=== PATIENT | female | born 1940 | race Caucasian/White ===

== ENCOUNTER → 2016-11-27 | Outpatient (CLI) | payer MEDICARE, BC ==
[~2016-11-27] MED LIST: ALPR.25 PO; AMIT10TA6 PO; ASPI81 PO; ASPI81CH CHEW; BENIFIBER PO; BONI150T PO; DULO20 PO; FISH1000 PO; GLUCTAB47 PO; LEVO75TA3 PO; LEVO75TA42 PO; META48.53 PO; OYST500T77 PO; PRIL10PO PO; TAB-TAB PO
--- NOTE | 2016-11-28 11:56 | EKG ---
Date Performed: 11/27/2016 Time Performed: 10:49:09 PTAGE: 76 years EKG: Sinus rhythm NORMAL ECG Compared to prior tracing no significant change PREVIOUS TRACING : 08/18/2008 11.32 DOCTOR: Franck Neil Interpretating Date/Time 11/28/2016 11:54:08
== END ==
LOC: PHPRE 09:57
PROVIDERS: ATTEND Ophthalmology
DX: Z01.810 Encounter for preprocedural cardiovascular examination (principal); H26.9 Unspecified cataract
CPT/HCPCS: 36415; 93005

== ENCOUNTER → 2016-12-18 | Day surgery (SDC) | payer MEDICARE, BC ==
--- NOTE | 2016-12-05 08:35 | MH ---
cc: MARY GALDAMEZ DATE OF ADMISSION: 12/18/2016 ADMISSION DIAGNOSIS Cataract right eye. HISTORY OF PRESENT ILLNESS This 76-year-old white female is coming through [facility] for the purpose of a lens extraction of the right eye with intraocular lens implant under local anesthesia. She has noted decreasing visual acuity interfering with her daily activities and elected to have the above procedure. Her best corrected visual acuity in room light is 20/40 -1 in the right eye and 20/30 -2 in the left. PAST MEDICAL HISTORY The patient has had a history of seeing pulsating lights and was seen in the [facility] by Dr. Blake who felt that this problem was in her vitreous and would eventually go away but did not know how long it would take. She still has it several years later. OTHER PAST MEDICAL HISTORY 1. Diabetes. 2. Polymyalgia rheumatica which he is in remission. 3. Irritable bowel syndrome. 4. Acid reflux. 5. Arthritis. PAST SURGICAL HISTORY 1. Mastectomy and reconstruction. 2. Paraesophageal hernia. 3. Inguinal hernia. 4. Elbow replacement. DAILY MEDICATIONS 1. Levothyroxine. 2. Omeprazole. 3. Xanax p.r.n. 4. Amitriptyline. 5. Metamucil. 6. Baby aspirin. ALLERGIES She has noted that amitriptyline causes hoarseness but has no other allergies. SOCIAL HISTORY The patient does not smoke or drink alcohol. FAMILY HISTORY Noncontributory. REVIEW OF SYSTEMS HEAD: Patient denies severe headaches, dizziness or recent head injury. EARS: Patient denies hearing loss, ear pain, discharge. The patient has ringing in the ears with tinnitus. NOSE: Patient denies nasal discharge, obstruction or frequent colds. MOUTH AND THROAT: Patient denies soreness of the mouth or tongue, bleeding gums, trouble swallowing, changes in voice or sore throat. NECK: Patient denies neck pain or swelling, limitation of neck movement or neck injury. CARDIOPULMONARY SYSTEM: Patient denies shortness of breath, orthopnea, chronic cough, sputum production, hemoptysis, chest pain, wheezing, palpitations or light-headedness. GI SYSTEM: Patient denies poor appetite, nausea, vomiting, abdominal pain, ulcers, hemorrhoids or change in bowel habits. Her acid reflux causes her to sleep on several pillows. SYSTEM: The patient denies urinary frequency, dysuria, change in urine color. NERVOUS SYSTEM: Patient denies convulsions, vertigo, stroke, numbness or weakness. PHYSICAL EXAMINATION VITAL SIGNS: Blood pressure is 122/78, pulse 88, respirations 16. HEAD: Normocephalic, atraumatic. NOSE: Without rhinorrhea. THROAT: Clear. NECK: Supple. CHEST: Clear. HEART: Regular rhythm. ABDOMEN: Without tenderness. EXTREMITIES: Without edema. NEUROLOGIC: Within normal limits. MENTAL STATUS: Within normal limits. EYE EXAMINATION The patient's best corrected visual acuity in room light is 20/40 -1 in the right eye and 20/30 -2 in the left. Visual peñaloza are full to confrontation testing. Extraocular muscle exam reveals full versions with orthophoria in the distance and exophoria at near. Pupils are 3 mm equal, round, reactive to light without afferent defect. Anterior segment examination reveals dermatochalasis of the eyelid skin. There are nuclear sclerotic and cortical cataract changes bilaterally. Intraocular pressure is 19 in the right eye and 20 in the left by applanation tonometry. Dilated fundus exam revealed sharp disks with cup-to-disk ratio of 0.2 bilaterally. There is some hypo pigmentation in the macula of each eye. A posterior vitreous detachment is present bilaterally. IMPRESSION 1. Bilateral cataracts. 2. Posterior vitreous detachment both eyes. PLAN Lens extraction of the right eye with intraocular lens implant under local anesthesia through [facility]. We may place a Toric intraocular lens as the patient has astigmatism and has elected to have this lens if it is possible during the procedure. Iris retractors may be used if the pupil does not dilate well. The patient has been cleared medically. She has been counseled as to the risks, benefits and alternatives and elected to proceed. I feel that cataract surgery will improve the quality of life and activities of daily living in this patient. MD JULIENNE Felipe/AMANDA /7:58 AM /8:06 AM BETITO
[~2016-12-18] VITALS: Ht 161.3 cm; Wt 68.2 kg
[~2016-12-18] MED LIST changes: -ASPI81 PO; -BENIFIBER PO; -BONI150T PO; +CHLORHEXIDINE GLUCONATE 2 % 1 PACK (2 CLOTHS) TOPICAL PRN; +CYCLOPENTOLATE HCL 1% OPHT SOLN 2 ML BTL ONE; +DICLOFENAC SOD 0.1% OPHT SOLN 2.5 ML BTL ONE; -DULO20 PO; -FISH1000 PO; +GATIFLOXACIN 0.5% OPHT SOLN 2.5 ML BTL ONE; -GLUCTAB47 PO; +HYALURONIDASE/LIDOCAINE/BUPIVACAINE 4.5 ML SYR RIGHT EYE ONE; +HYALURONIDASE/LIDOCAINE/BUPIVACAINE 6 ML SYR RIGHT EYE ONE; +INSULIN HUMAN REGULAR 1,000 UNITS/10 ML VIAL SQ PRN; +LACTATED RINGER'S 1000 ML IV PRN; -LEVO75TA42 PO; +METOPROLOL TARTRATE 25 MG TAB PO PRN; -OYST500T77 PO; +PHENYLEPHRINE HCL 2.5% OPTH SOLN 2 ML BTL ONE; +PILOCARPINE HCL 2% OPHT SOLN 15 ML BTL ONE; +POVIDONE IODINE 5% (ANTISEPSIS KIT) 4 APPLICATIONS EACH NARE PRN; +PROPARACAINE HCL 0.5% OPHT SOLN 15 ML BTL ONE; +PROPARACAINE HCL 0.5% OPHT SOLN 15 ML BTL RIGHT EYE ONE; +PROPOFOL 200 MG/20 ML AMP ONE; +SODIUM CHLORID 0.9% 500 ML IV PRN; -TAB-TAB PO; +TOBRAMYCIN/DEXAMETHASONE OPTH OINT 3.5 GM TUBE ONE; +TROPICAMIDE 1% OPHT SOLN 15 ML BTL ONE; +acetaZOLAMIDE SEQUELS 500 MG SUSTAINED RELEASE CAP ONE
[2016-12-18] MEDS: GATIFLOXACIN 0.5% OPHT SOLN 2.5 ML BTL RIGHT EYE SCH ×4 (06:45→06:54)
[2016-12-18] MEDS: DICLOFENAC SOD 0.1% OPHT SOLN 2.5 ML BTL RIGHT EYE SCH ×4 (06:45→06:54)
[2016-12-18] MEDS: PHENYLEPHRINE HCL 2.5% OPTH SOLN 2 ML BTL RIGHT EYE SCH ×4 (06:45→06:54)
[2016-12-18] MEDS: TROPICAMIDE 1% OPHT SOLN 15 ML BTL RIGHT EYE SCH ×4 (06:45→06:54)
[2016-12-18] MEDS: CYCLOPENTOLATE HCL 1% OPHT SOLN 2 ML BTL RIGHT EYE SCH ×4 (06:45→06:54)
[2016-12-18 07:00] VITALS: PULSE 67
[2016-12-18 07:21] VITALS: PULSE 65
[2016-12-18] MEDS: EPINEPHrine HCL (1:1000) 1 MG/ML VIAL ONE ×2 (07:48→07:51)
[2016-12-18] MEDS: VISCOAT OPHT IRRIG SOLN 0.75 ML SYRINGE ONE ×2 (07:48→07:51)
[2016-12-18] MEDS: ACETYLCHOLINE CHL OPHT SOLN 1:100 2 ML VIAL ONE ×2 (07:48→07:51)
[2016-12-18 09:14] VITALS: BP 146/72; PULSE 82; RESP 16; TEMP 97.6; O2SAT 99
--- NOTE | 2016-12-18 15:02 | MP ---
cc: MARY SCOTT DATE OF SURGERY: 12/18/2016 PREOPERATIVE DIAGNOSIS Cataract, right eye. POSTOPERATIVE DIAGNOSIS Cataract right eye. OPERATION Extracapsular cataract extraction with toric posterior chamber intraocular lens implant by phacoemulsification, right eye. SURGEON Mary Scott M.D. ANESTHESIA Local. COMPLICATIONS None. INDICATIONS See history and physical previously dictated. OPERATIVE PROCEDURE The patient's right eye was marked at the limbus at the 3, 6 and 9 o'clock positions. The patient had adequate retrobulbar and eyelid blocks administered in the holding area and was brought to the operating room. The right eye was prepped and draped in the usual sterile ophthalmic manner. A lid speculum was inserted in the right eye. A 4-0 silk bridle suture was placed through the conjunctiva near the superior rectus muscle and it was tacked to the drape. A fornix-based conjunctival flap was prepared spanning approximately 5 mm in width. Hemostasis was obtained with wet-field cautery. A 3.5 mm groove was made 1 mm from the limbus and dissected up to the limbus in the form of a scleral pocket incision. A stab incision was then made at the 2 o'clock position. Viscoelastic was injected into the anterior chamber. The anterior chamber was entered with a 2.75 mm keratome through the scleral pocket incision. A 360 degree continuous curvilinear capsulorrhexis was then performed. Hydrodissection was utilized to divide the nucleus into inner and outer components and to separate the cortex from the capsule. Phacoemulsification was then utilized to remove the nucleus. The outer nuclear layer was removed with irrigation and aspiration and short bursts of ultrasound as necessary. The cortex was removed with the irrigation-aspiration handpiece. The posterior capsule was polished with the capsule polisher. Viscoelastic was injected into the capsular bag. The intraocular lens was inspected and found to be in good condition. The lens utilized was an Partha, model [id number] with a power of +19 diopters. The lens was inserted into the capsular bag and rotated so that the alignment glass were at the 3 degree position. The viscoelastic in the anterior chamber was then removed with the irrigation-aspiration handpiece. Viscoelastic was also removed from beneath the intraocular lens. The anterior chamber was filled with Miochol-E through the stab incision and pressurized. The wound was checked for leaks at this pressure and normalized pressure, and there were none. The 4-0 bridle suture was removed. The conjunctival flap was brought down over the wound and secured with cautery. Pilocarpine 2% eye drops were instilled topically. The lid speculum was removed. TobraDex ophthalmic ointment was applied. The eye was double patched and shielded. The patient tolerated the procedure well and left the Operating Room in satisfactory condition. MD JULIENNE Felipe/JENNIFER /1:46 PM /2:55 PM
== END | disposition home or self-care (01) ==
LOC: PHSDC 06:10
PROVIDERS: ATTEND Ophthalmology
DX: H26.9 Unspecified cataract (principal); H43.813 Vitreous degeneration, bilateral; K21.9 Gastro-esophageal reflux disease without esophagitis; E11.9 Type 2 diabetes mellitus without complications
CPT/HCPCS: 00142; 66984; J0171; J7040; V2632; V2787